=== PATIENT | male | born 1955 ===

== ENCOUNTER 2021-12-05 20:10 | Emergency (ER) | payer SELFPAY ==
[~2021-12-05] VITALS: Ht 172.7 cm; Wt 49.9 kg
[2021-12-05] MEDS ORDERED: ETOMIDATE (2MG/ML) 20ML VIAL IV ONE ×2 (20:20→20:45)
[2021-12-05] MEDS ORDERED: ROCURONIUM 10MG/ML 10ML VIAL IV ONE ×2 (20:20→20:45)
[2021-12-05] MEDS ORDERED: PROPOFOL 0 ML IV ONE (20:26)
[2021-12-05] MEDS: PROPOFOL 100 ML IV SCH ×4 (20:30→23:25)
[2021-12-05] MEDS ORDERED: MIDAZOLAM HCL 2MG/2ML 2ml VIAL (1mg/ml) IV ONE (21:00)
[2021-12-05] MEDS: MIDAZOLAM DRIP 50 mg/50mL 50 ML IV SCH ×2 (21:40→22:10)
[2021-12-05 21:46] LABS: Basophils # (auto) 0 10 ^3/uL (0-0.2); Basophils % (auto) 0.2 % (0.0-2.0); Eosinophils # (auto) 0 10 ^3/uL (0-0.8); Hemoglobin 11.3 g/dL (13.5-17.5); Lymphocytes # (auto) 0.4 10 ^3/uL (0.4-5.4); Lymphocytes % (auto) 3.7 % (10.0-50.0); Mean Corpuscular Hgb Conc. 32.3 g/dL (32.0-36.0); Mean Corpuscular Volume 86.5 fL (80.0-100.0); Monocytes # (auto) 0.5 10 ^3/uL (0-1.3); Monocytes % (auto) 4.5 % (0.0-12.0); Neutrophils # (auto) 10.8 10 ^3/uL (1.6-8.6); Neutrophils % (auto) 91.6 % (37.0-80.0); Red Blood Cells 4.05 10^6/uL (4.5-5.90); White Blood Cell 11.8 10^3/uL (4.4-10.8)
[2021-12-05 21:56] LABS: Red Cell Distribution Width 20.3 % (11.8-14.3)
[2021-12-05 22:03] LABS: Albumin 2.6 g/dL (3.4-5.0); Calcium 7.9 mg/dL (8.5-10.1); Potassium 4.2 mmol/L (3.5-5.1)
[2021-12-05 22:07] LABS: BUN/Creatinine Ratio 34.2; Bilirubin, Total 0.6 mg/dL (0.2-1.0); Lactic Acid w/Reflex 2.1 mmol/L (0.4-2.0); Total Protein 7.8 g/dL (6.4-8.2)
[2021-12-05 22:19] LABS: INR 1.2 (0.9-1.15)
[2021-12-05 22:20] LABS: Urine Bacteria NONE SEEN /hpf (None Seen); Urine Blood 2+ /uL (Negative); Urine Specific Gravity 1.008 (1.001-1.035); Urine WBC 5 /hpf (0 - 3)
[2021-12-05 22:29] LABS: Alcohol, Urine < 3.0 mg/dL (0-10); Amphetamine Screen, Urine NEGATIVE (NEGATIVE); Barbiturate Scree,Urine NEGATIVE (NEGATIVE); Benzodiazephine Screen, Urine NEGATIVE (NEGATIVE); Cannabinoid Screen, Urine NEGATIVE (NEGATIVE); Cocaine Screen, Urine NEGATIVE (NEGATIVE); Opiate Scree,Urine POSITIVE (NEGATIVE); Phencyclidine Screen, Urine NEGATIVE (NEGATIVE)
[2021-12-05 22:30] VITALS: BP 180/122
[2021-12-05] MEDS ORDERED: NOREPINEPHRINE 8 MG/250ML KIT 250 ML IV ONE (23:21)
[2021-12-05] MEDS: NOREPINEPHRINE 8 MG/250ML KIT 250 ML IV SCH ×4 (23:25→23:40)
[2021-12-06] MEDS: NOREPINEPHRINE 8 MG/250ML KIT 250 ML IV SCH (01:19)
[2021-12-06 01:30] VITALS: BP 143/94
[2021-12-06] MEDS ORDERED: SODIUM CHL 3% 250 ML IV ONE (02:00)
[2021-12-06 02:43] VITALS: BP 100/66
== END 2021-12-06 02:58 | disposition short-term general hospital (02) ==
LOC: ER 20:10 → EDBD 20:10 → ER 12-06 02:58
DX: R09.2 Respiratory arrest (principal); R41.82 Altered mental status, unspecified; G92.9 Unspecified toxic encephalopathy; Z20.822 Contact with and (suspected) exposure to COVID-19
CPT/HCPCS: 31500; 36415; 36600; 70450; 71045; 71250; 72125; 73700; 74018; 74176; 80053; 80307; 81001; 82805; 83605; 83735; 85025; 85610; 85730; 87070; 87077; 87086; 87088; 87186; 87205; 87426; 93005; 96360; 99291; C9803; J2250; U0003; 94002; J2704